=== PATIENT | female | born 1965 | race Caucasian/White ===

== ENCOUNTER → 2016-12-07 | Day surgery (SDC) | payer OTHER ==
[2016-12-01 12:15] VITALS: Ht 170.2 cm; Wt 76.4 kg
[~2016-12-07] VITALS: Ht 170.2 cm; Wt 76.4 kg
[~2016-12-07] MED LIST: ALBU1AER9 INH; CARB400T3 PO; LIDOCAINE HCL 2% 2 ML VIAL (20MG/ML) ONE; MONT1TAB3 PO; PANT40TA PO; PROPOFOL IV EMULSION 10 MG/ML 20 ML VIAL IV ONE; SODIUM CHLORIDE 0.9% 500ML 500 ML IV ONE; SPRIN/30 INH; SYMIN/8045 INH; TOPI100T20 PO; ZNTT/150 PO
[2016-12-07 12:01] VITALS: TEMP 37
--- NOTE | 2016-12-07 12:12 | Endo History and Physical ---
History & Physical Date of Service: Dec 07, 2016. Chief Complaint: reflux Referring Physician: Dr. Navid Moreno History of Present Illness Heartburn Past Medical History Asthma, Reflux, COPD Past Surgical History Hx Cardiac Surgery: No Hx Internal Defibrillator: No Hx Pacemaker: No Hx Abdominal Surgery: Yes ( X2, TUBAL SX, TUBAL LIGATION) Hx of Implantable Prosthesis: No Hx Post-Op Nausea and Vomiting: No Hx Cancer Surgery: No Hx Thoracic Surgery: No Hx Orthopedic: No Hx Urinary Tract Surgery: Yes (KIDNEY STONE EXTRACTION X 2) Family History Colon CA, Esophogeal CA, Polyp, IBD Social History Smoking Status: Never Smoker Hx Substance Use: No Hx Alcohol Use: No Allergies Coded Allergies: Codeine (Verified Allergy, Severe, ANAPHYLAXIS, 12/07/16) Phenytoin (Verified Allergy, Intermediate, HIVES, 12/07/16) Current Medications Reported Home Medications Medications Dose Route/Sig Max Daily Dose Days Date Category Spiriva Handihaler (Tiotropium Dinosaur) 30 Puff/540 Mcg Aerp 1 Cap INH QAM 12/01/16 Reported Zantac (Ranitidine HCl) 150 Mg Tab 150 Mg PO BID 12/01/16 Reported Singulair (Montelukast Sodium) 10 Mg Tab 10 Mg PO BID 12/01/16 Reported Protonix (Pantoprazole Sodium) 40 Mg Tab 40 Mg PO BID 12/01/16 Reported Topamax (Topiramate) 100 Mg Tab 100 Mg PO BID 02/25/14 Reported Tegretol Xr (Carbamazepine) 400 Mg Tabcr 400 Mg PO BID 02/25/14 Reported Symbicort 80/4.5 Inhaler (Budesonide/Formoterol Fumarate) Aero 2 Puffs INH BID 02/25/14 Reported Proair Hfa (Albuterol) Aers 2 Puffs INH DIRECTED 02/25/14 Reported Vital Signs Weight (Kilograms): 76.36 Height (Feet): 5 Height (Inches): 7 Date Time Temp Pulse Resp B/P Pulse Ox O2 Delivery O2 Flow Rate FiO2 12/07/16 12:01 37 85 20 135/87 100 Room Air Physical Exam General Appearance: no apparent distress Respiratory/Chest: Auscultation: breath sounds normal Cardiovascular: Heart Auscultation: RRR Abdomen: Inspection & Palpation: soft Liver: non-tender Assessment and Plan stable for EGD.
--- NOTE | 2016-12-07 12:58 | Discharge Instructions ---
Endoscopy Patient Instructions Date / Procedure(s) Performed Dec 07, 2016. EGD Allergy Information Coded Allergies: Codeine (Verified Allergy, Severe, ANAPHYLAXIS, 12/07/16) Phenytoin (Verified Allergy, Intermediate, HIVES, 12/07/16) Discharge Date / Findings Dec 07, 2016. small hiatal hernia. Provider Instructions Activity Restrictions - No exercising or heavy lifting for 24 hours. - Do not drink alcohol the day of the procedure. - Do not drive a car or operate machinery until the day after the procedure. - Do not make any important decisions or sign important papers in 24 hours after the procedure. Following Day: - Return to full activity which may include returning to work/school. Diet Start your diet with liquids and light foods (jello, soup, juice, toast). Then eat your usual diet if not nauseated. Treatment For Common After Affects For mild abdominal pain, bloating, or excessive gas: - Rest - Eat lightly - Lie on right side Follow-Up Information Follow-up with Dr. Navid Moreno as scheduled Anesthesia Information What You Should Know You have had a procedure that required some medicine to reduce anxiety and discomfort. This treatment is called moderate sedation. After receiving the treatment, you may be sleepy, but you will be able to breathe on your own. The effects of the treatment may last for several hours. Follow these instructions along with Activity/Diet recommendations noted above: * Do NOT do anything where dizziness or clumsiness would be dangerous. * Rest quietly at home today, then you can be up and about tomorrow. * Have a responsible person stay with you the rest of today. * You may have had an I.V. today. If so, you may take the dressing off later today. Recommendations Call your doctor if: * Trouble breathing * Continuous vomiting for more than 24 hours * Temperature above 101 degrees * Severe abdominal pain or bloating * Pain not relieved by pain medicine ordered * There is increased drainage or redness from any incision * A large amount of rectal bleeding greater than 2-3 tablespoons. (If you had a polyp/s removed or have hemorrhoids, a small amount of blood - from the rectum is to be expected.) * You have any unanswered questions or concerns. IN THE EVENT OF A SERIOUS EMERGENCY, GO TO THE NEAREST EMERGENCY ROOM Your discharge instructions were prepared by provider Quintin Blanchard. Patient Instructions Signature Page Regina Settle Patient (or Guardian) Signature/Date: I have read and understand the instructions given to me by my caregivers. Caregiver/RN/Doctor Signature/Date: The above-named patient and/or guardian has received patient instructions on this date. + Original Patient Signature Page (only) stays with chart. Please make copy for patient.
--- NOTE | 2016-12-07 12:58 | GI REPORT ---
Procedure Date: 12/07/2016 12:09 PM Procedure: Upper GI endoscopy Indications: Heartburn, Regurgitation Medicines: See the Anesthesia note for documentation of the administered medications Complications: No immediate complications. Estimated Blood Loss: Estimated blood loss: none. Procedure: Pre-Anesthesia Assessment: - Prior to the procedure, a History and Physical was performed, and patient medications, allergies and sensitivities were reviewed. The patient's tolerance of previous anesthesia was reviewed. - The risks and benefits of the procedure and the sedation options and risks were discussed with the patient. All questions were answered and informed consent was obtained. - Patient identification and proposed procedure were verified prior to the procedure by the physician and the nurse. The procedure was verified in the pre-procedure area. - Pre-procedure physical examination revealed no contraindications to sedation. - After reviewing the risks and benefits, the patient was deemed in satisfactory condition to undergo the procedure. After obtaining informed consent, the endoscope was passed under direct vision. Throughout the procedure, the patient's blood pressure, pulse, and oxygen saturations were monitored continuously. The scope was introduced through the mouth, and advanced to the third part of duodenum. The upper GI endoscopy was accomplished without difficulty. The patient tolerated the procedure well. Findings: The esophagus was normal. A small hiatus hernia was present. The examined duodenum was normal. The cardia and gastric fundus were normal on retroflexion. Impression: - Normal esophagus. - No strictures seen. - Small hiatus hernia. - Normal examined duodenum. - No specimens collected. Recommendation: - Discharge patient to home. Quintin Blanchard M.D. Quintin Blanchard MD 12/07/2016 12:57:05 PM This report has been signed electronically. Note Initiated On: 12/07/2016 12:09 PM I attest to the content of the Intraoperative Record and orders documented therein, exceptions below
[2016-12-07 13:26] VITALS: BP 144/91; PULSE 73; O2SAT 100
--- NOTE | 2016-12-07 14:02 | Anesthesiology Progress Note ---
Anesthesia Post Op Note Date & Time Dec 07, 2016 at 14:01 Vital Signs Pain Intensity: 0 Vital Signs Past 12 Hours Date Time Temp Pulse Resp B/P Pulse Ox O2 Delivery O2 Flow Rate FiO2 12/07/16 13:26 73 20 144/91 100 Room Air 12/07/16 13:12 76 20 125/81 100 Room Air 12/07/16 12:56 86 20 114/75 99 Room Air 12/07/16 12:01 37 85 20 135/87 100 Room Air Notes Mental Status: alert / awake / arousable, participated in evaluation Pt Amnestic to Procedure: Yes Nausea / Vomiting: adequately controlled Pain: adequately controlled Airway Patency, RR, SpO2: stable & adequate BP & HR: stable & adequate Hydration State: stable & adequate Anesthetic Complications: no major complications apparent
== END | disposition home or self-care (01) ==
LOC: C.GI 11:40
PROVIDERS: ATTEND Internal Medicine Gastroenterology
DX: K44.9 Diaphragmatic hernia without obstruction or gangrene (principal); K21.9 Gastro-esophageal reflux disease without esophagitis; J44.9 Chronic obstructive pulmonary disease, unspecified; Z80.0 Family history of malignant neoplasm of digestive organs; Z83.71 Family history of colonic polyps; Z83.79 Family history of other diseases of the digestive system; Z79.899 Other long term (current) drug therapy

== ENCOUNTER → 2017-10-12 | Outpatient (CLI) | payer OTHER ==
[~2017-10-12] MED LIST changes: -LIDOCAINE HCL 2% 2 ML VIAL (20MG/ML) ONE; -PROPOFOL IV EMULSION 10 MG/ML 20 ML VIAL IV ONE; +RANI150T85 PO; -SODIUM CHLORIDE 0.9% 500ML 500 ML IV ONE; -ZNTT/150 PO
--- NOTE | 2017-10-12 14:00 | DIAGNOSTIC IMAGING REPORT ---
VIDEO SWALLOW HISTORY: DYSPHAGIA TECHNIQUE: Video fluoroscopic evaluation of swallowing was performed in the AP and lateral projections by the speech pathology staff. The patient is fed nectar-thick and thin liquid barium, a barium coated wafer, and barium pudding. FLUOROSCOPY TIME: 2 minutes.. COMPARISON STUDY: None. FINDINGS: There is normal hyoid excursion and epiglottic deflection. No significant penetration or aspiration identified. Swallowing function is within normal limits. Mild posterior impression along the upper esophagus due to the anterior osteophytes within the lower cervical spine. There is mild esophageal dysmotility. IMPRESSION: 1. No aspiration identified. Mild esophageal dysmotility. 2. Please see the speech pathologist report for detailed findings and recommendations. Electronically signed by: Costa Manley M.D. 10/12/2017 1:59 PM Dictated Date/Time: 10/12/2017 1:55 PM
--- NOTE | 2017-10-13 17:06 | SWALLOWING EVALUATION ---
REFERRING SPEECH PATHOLOGIST: n/a HISTORY: This 52 year-old female was referred for a VFSS at [facility] in order to address c/o dysphagia and globus sensation. The patient has a PMH significant for CHI with craniotomy, COPD with asthma and GERD. Currently the patient's diet level is regular. PROCEDURE: The patient was seen in the Radiology Department of [facility] for the VFSS. Cursory examination of the oral cavity revealed adequate dentition. Movement of the articulators was WNL. The patient was seated on a stool and was viewed in both the Anterior-Posterior (A-P) and Lateral planes. Volitional phonation exercises completed in the A-P plane revealed bilateral vocal fold movement and vocal intensity within functional limits. In the lateral plane, the patient was given the following boluses: 1 tsp. thin liquid barium x 2, single swallow thin liquid barium self-presented from a cup, sequential swallows of thin liquid barium self-presented from a cup, 1 tsp. nectar-thick liquid barium, single swallow nectar-thick liquid barium self-presented from a cup, 1 tsp. barium pudding, and 1 club cracker with barium pudding. The patient was then repositioned into the A-P plane and given the following boluses: 1 tsp. nectar-thick liquid barium and 1 tsp. barium pudding. RESULTS: Oral Stage: Labial seal, oral bolus hold, mastication, lingual movement for bolus transfer, oral bolus clearance and pharyngeal swallow initiation were all complete/adequate. Oral stage of the swallow was WNL. Pharyngeal Stage: Velar elevation, laryngeal elevation, anterior hyoid excursion, epiglottic inversion, laryngeal vestibular closure, pharyngeal stripping wave, pharyngeal contraction, distention and duration of PES opening, tongue base retraction and pharyngeal clearance were all complete/adequate. There were small osteophytes present that made impressions on the cervical esophagus, but did not in any way impede bolus flow. There was no penetration or aspiration during this study. Pharyngeal stage of the swallow was WNL. Esophageal Stage: There was evidence of esophageal dysmotility throughout the esophagus. This would somewhat correspond to findings that the patient reported to me from a Barium Swallow Study completed at [facility]. She stated the radiologist told her the dysmotility was mild. At this study, the dysmotility appeared to be moderate. SUMMARY/RECOMMENDATIONS: This patient presents with normal oral-pharyngeal swallowing, but there were s/s esophageal dysfunction. The following is recommended: 1. Slippery diet (written information provided to patient and ) 2. Consideration of f/u with GI services. The patient reports having significant heart burn and indigestion despite her regimen of GERD medications. A summary of the results and recommendations was discussed with the patient and her immediately following the study. They were given written information re: esophageal diet and they verbalized understanding. Thank you for referral of this patient. Please contact me at if any additional information is needed.
== END | disposition home or self-care (01) ==
LOC: C.RAD 12:57
PROVIDERS: ATTEND Internal Medicine Gastroenterology
DX: R13.10 Dysphagia, unspecified (principal)

== ENCOUNTER → 2018-01-01 | Day surgery (SDC) | payer OTHER ==
[2017-12-28 10:54] VITALS: Ht 170.2 cm; Wt 81.4 kg
[~2018-01-01] VITALS: Ht 170.2 cm; Wt 81.4 kg
[~2018-01-01] MED LIST changes: -ALBU1AER9 INH; +B-COTAB18 PO; +CALC500C3 PO; +CLR10 PO; +FENTANYL CITRATE INJ 50 MCG/1 ML 2 ML VIAL ONE; +FLUT50SP45; +LIDOCAINE HCL 2% 2 ML VIAL (20MG/ML) ONE; +ONDANSETRON INJ 2 MG/ML 2 ML VIAL ONE; +PROPOFOL IV EMULSION 10 MG/ML 20 ML VIAL ONE; +SODIUM CHLORIDE 0.9% 500ML 500 ML IV ONE; +VITAMIN D PO; +VNTHFA/IN INH
--- NOTE | 2018-01-01 09:49 | Endo History and Physical ---
History & Physical Date of Service: January 01, 2018. Chief Complaint: Referring Physician: History of Present Illness Refractory GERD, needs [facility] Past Medical History Asthma, Reflux, COPD Past Surgical History Hx Cardiac Surgery: No Hx Internal Defibrillator: No Hx Pacemaker: No Hx Abdominal Surgery: Yes ( X2, TUBAL SX, TUBAL LIGATION) Hx of Implantable Prosthesis: No Hx Post-Op Nausea and Vomiting: No Hx Cancer Surgery: No Hx Thoracic Surgery: No Hx Orthopedic: No Hx Urinary Tract Surgery: Yes (KIDNEY STONE EXTRACTION X 2) Family History Esophogeal CA Social History Smoking Status: Never Smoker Hx Substance Use: No Hx Alcohol Use: No Allergies Coded Allergies: Codeine (Verified Allergy, Severe, ANAPHYLAXIS, 01/01/18) Phenytoin (Verified Allergy, Intermediate, HIVES, 01/01/18) Current Medications Reported Home Medications Medications Dose Route/Sig Max Daily Dose Days Date Category [Vitamin D] 1 Tab PO DAILY 12/28/17 Reported Vitamin B Complex (B-Complex Vitamins) 1 Tab Tab 1 Tab PO DAILY 12/28/17 Reported Claritin (Loratadine) 10 Mg Tab 10 Mg PO DAILY 12/28/17 Reported Allergy Nasal Arnold 24 Ho (Fluticasone Propionate (Nasal)) 50 Mcg/Act Spr DIRECTED 12/28/17 Reported Tums (Calcium Carbonate) 500 Mg Chew 1 Tab PO DAILY 12/28/17 Reported Ventolin Hfa (Albuterol) 200 Puffs/02848 Mcg Aers 2-4 Puffs INH Q6H PRN 12/28/17 Reported Spiriva Handihaler (Tiotropium Elkins) 30 Puff/540 Mcg Aerp 1 Cap INH QAM 12/01/16 Reported Zantac (Ranitidine HCl) 150 Mg Tab 150 Mg PO BID 12/01/16 Reported Singulair (Montelukast Sodium) 10 Mg Tab 10 Mg PO BID 12/01/16 Reported Protonix (Pantoprazole Sodium) 40 Mg Tab 40 Mg PO DAILY 12/01/16 Reported Topamax (Topiramate) 100 Mg Tab 100 Mg PO BID 02/25/14 Reported Tegretol Xr (Carbamazepine) 400 Mg Tabcr 400 Mg PO BID 02/25/14 Reported Symbicort 80/4.5 Inhaler (Budesonide/Formoterol Fumarate) Aero 2 Puffs INH BID 02/25/14 Reported Vital Signs Weight (Kilograms): 81.36 Height (Feet): 5 Height (Inches): 7 Date Time Temp Pulse Resp B/P (MAP) Pulse Ox O2 Delivery O2 Flow Rate FiO2 01/01/18 09:43 36.8 82 18 140/80 (100) 98 Room Air Physical Exam General Appearance: no apparent distress Respiratory/Chest: Auscultation: breath sounds normal Cardiovascular: Heart Auscultation: RRR Abdomen: Inspection & Palpation: soft, non-distended Assessment and Plan Stable for EGD with [facility]
--- NOTE | 2018-01-01 10:52 | Anesthesiology Progress Note ---
Anesthesia Post Op Note Date & Time January 01, 2018 at 10:52 Vital Signs Pain Intensity: 0 Vital Signs Past 12 Hours Date Time Temp Pulse Resp B/P (MAP) Pulse Ox O2 Delivery O2 Flow Rate FiO2 01/01/18 09:43 36.8 82 18 140/80 (100) 98 Room Air Notes Mental Status: alert / awake / arousable, participated in evaluation Pt Amnestic to Procedure: Yes Nausea / Vomiting: adequately controlled Pain: adequately controlled Airway Patency, RR, SpO2: stable & adequate BP & HR: stable & adequate Hydration State: stable & adequate Anesthetic Complications: no major complications apparent
--- NOTE | 2018-01-01 10:57 | GI REPORT ---
Patient Name: Regina Lopez Procedure Date: 01/01/2018 10:31 AM Date of : 1965 Admit Type: Outpatient Age: 52 Gender: Female Attending MD: Eliud Montelongo MD Procedure: Upper GI endoscopy Providers: Eliud Montelongo MD Referring MD: Navid Roberts Indications: Esophageal reflux symptoms that persist despite appropriate therapy Medicines: Monitored Anesthesia Care Complications: No immediate complications. Estimated Blood Loss: Estimated blood loss: none. Procedure: Pre-Anesthesia Assessment: - Prior to the procedure, a History and Physical was performed, and patient medications and allergies were reviewed. The patient is competent. The risks and benefits of the procedure and the sedation options and risks were discussed with the patient. All questions were answered and informed consent was obtained. Patient identification and proposed procedure were verified by the physician and the nurse in the procedure room. Mental Status Examination: alert and oriented. Airway Examination: normal oropharyngeal airway and neck mobility. Respiratory Examination: clear to auscultation. CV Examination: normal. ASA Grade Assessment: III - A patient with severe systemic disease. After reviewing the risks and benefits, the patient was deemed in satisfactory condition to undergo the procedure. The anesthesia plan was to use monitored anesthesia care (MAC). Immediately prior to administration of medications, the patient was re-assessed for adequacy to receive sedatives. The heart rate, respiratory rate, oxygen saturations, blood pressure, adequacy of pulmonary ventilation, and response to care were monitored throughout the procedure. The physical status of the patient was re-assessed after the procedure. After obtaining informed consent, the endoscope was passed under direct vision. Throughout the procedure, the patient's blood pressure, pulse, and oxygen saturations were monitored continuously. The scope was introduced through the mouth, and advanced to the second part of duodenum. The upper GI endoscopy was accomplished without difficulty. The patient tolerated the procedure well. Findings: LA Grade A (one or more mucosal breaks less than 5 mm, not extending between tops of 2 mucosal folds) esophagitis with no bleeding was found in the lower third of the esophagus. The Z-line was found 37 cm from the incisors. The RAMOS capsule with delivery system was introduced through the mouth and advanced into the esophagus, such that the RAMOS pH capsule was positioned 30 cm from the incisors, which was 6 cm proximal to the GE junction. Suction was applied to the well of the RAMSO pH capsule to suck in the adjacent mucosa of the esophagus using the external vacuum pump set at a minimum vacuum pressure of 580 mmHg for 35 seconds. The RAMOS pH capsule was then deployed by depressing the plunger on top of the handle to advance the locking pin into the mucosa, thereby attaching the capsule to the esophagus. The plunger was then rotated a quarter turn clockwise to release the capsule from the delivery system. The delivery system was then withdrawn. Endoscopy was utilized for probe placement and diagnostic evaluation. A few small sessile polyps with no stigmata of recent bleeding were found in the gastric fundus. The duodenal bulb and second portion of the duodenum were normal. Impression: - LA Grade A reflux esophagitis. - Z-line, 37 cm from the incisors. - The RAMOS pH capsule was positioned 30 cm from the incisors, which was 6 cm proximal to the GE junction. - A few gastric polyps, likely fundic gland polyps. - Normal duodenal bulb and second portion of the duodenum. - No specimens collected. Recommendation: - Discharge patient to home. - Continue present medications. - Return to referring physician. Eliud Montelongo MD 01/01/2018 10:57:10 AM This report has been signed electronically. Note Initiated On: 01/01/2018 10:31 AM Number of Addenda: 0 I attest to the content of the Intraoperative Record and orders documented therein, exceptions below {[id number]}
--- NOTE | 2018-01-01 10:59 | Discharge Instructions ---
Endoscopy Patient Instructions Date / Procedure(s) Performed January 01, 2018. EGD Allergy Information Coded Allergies: Codeine (Verified Allergy, Severe, ANAPHYLAXIS, 01/01/18) Phenytoin (Verified Allergy, Intermediate, HIVES, 01/01/18) Discharge Date / Findings January 01, 2018. Esophagitis Grade A, [facility] capsule placed. Provider Instructions Activity Restrictions - No exercising or heavy lifting for 24 hours. - Do not drink alcohol the day of the procedure. - Do not drive a car or operate machinery until the day after the procedure. - Do not make any important decisions or sign important papers in 24 hours after the procedure. Following Day: - Return to full activity which may include returning to work/school. Diet Start your diet with liquids and light foods (jello, soup, juice, toast). Then eat your usual diet if not nauseated. Treatment For Common After Affects For mild abdominal pain, bloating, or excessive gas: - Rest - Eat lightly - Lie on right side Follow-Up Information Follow-up with Dr.Dejulia STEINER as scheduled Anesthesia Information What You Should Know You have had a procedure that required some medicine to reduce anxiety and discomfort. This treatment is called moderate sedation. After receiving the treatment, you may be sleepy, but you will be able to breathe on your own. The effects of the treatment may last for several hours. Follow these instructions along with Activity/Diet recommendations noted above: * Do NOT do anything where dizziness or clumsiness would be dangerous. * Rest quietly at home today, then you can be up and about tomorrow. * Have a responsible person stay with you the rest of today. * You may have had an I.V. today. If so, you may take the dressing off later today. Recommendations Call your doctor if: * Trouble breathing * Continuous vomiting for more than 24 hours * Temperature above 101 degrees * Severe abdominal pain or bloating * Pain not relieved by pain medicine ordered * There is increased drainage or redness from any incision * A large amount of rectal bleeding greater than 2-3 tablespoons. (If you had a polyp/s removed or have hemorrhoids, a small amount of blood - from the rectum is to be expected.) * You have any unanswered questions or concerns. IN THE EVENT OF A SERIOUS EMERGENCY, GO TO THE NEAREST EMERGENCY ROOM Your discharge instructions were prepared by provider Eliud Montelongo. Patient Instructions Signature Page Regina Lopez Patient (or Guardian) Signature/Date: I have read and understand the instructions given to me by my caregivers. Caregiver/RN/Doctor Signature/Date: The above-named patient and/or guardian has received patient instructions on this date. + Original Patient Signature Page (only) stays with chart. Please make copy for patient.
[2018-01-01 11:24] VITALS: BP 137/88; PULSE 65; O2SAT 97
== END | disposition home or self-care (01) ==
LOC: C.GI 09:11
PROVIDERS: ATTEND Student in an Organized Health Care Education/Training Program
DX: K21.0 Gastro-esophageal reflux disease with esophagitis (principal); J44.9 Chronic obstructive pulmonary disease, unspecified; N18.9 Chronic kidney disease, unspecified; R56.9 Unspecified convulsions; Z80.0 Family history of malignant neoplasm of digestive organs; Z88.5 Allergy status to narcotic agent; Z88.8 Allergy status to other drugs, medicaments and biological substances; Z87.442 Personal history of urinary calculi